=== PATIENT | female | born 2000 | race Caucasian/White ===

== ENCOUNTER 2022-08-03 17:31 | Emergency (ER) | payer OTHER, SELFPAY ==
[2022-08-03 17:42] VITALS: BP 134/73; PULSE 88; RESP 16; TEMP 37; O2SAT 99
--- NOTE | 2022-08-03 17:54 | ED.URI ---
HPI - URI/Sore Throat General Chief Complaint: Upper Respiratory Infection Stated Complaint: flu like sx Time Seen by Provider: 08/03/22 17:57 Source: patient and RN notes reviewed Mode of arrival: ambulatory Limitations: no limitations History of Present Illness HPI Narrative: 22-year-old female presents concern for a 3 day history of cough, sore throat, ear pain, nasal congestion and rhinorrhea. Reports body aches. She denies fever, sweats, chills. Reports taking DayQuil and NyQuil. 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 Denies chills, sweats, or fever. EYES: Denies visual changes, redness, or discharge. ENT: Reports rhinorrhea, congestion, left otalgia. Denies sore throat. CARDIOVASCULAR: Denies chest pain, palpitations, or edema. RESPIRATORY: Reports cough. Denies dyspnea. GASTROINTESTINAL: Denies abdominal pain, nausea, vomiting, diarrhea SKIN: Denies rash or itching. MUSCULOSKELETAL: Reports myalgia. NEUROLOGIC: Denies headache. All systems reviewed & are unremarkable except as noted in HPI and below PMFSH Comments At time of signature, agree with nursing past medical, surgical, social and family history. There is no relevant family history pertinent to the presenting complaint Exam Narrative: GENERAL: Well-appearing, well-nourished, and in no acute distress. HEAD: Normocephalic EYES: PERRLA, conjunctivae clear ENT: Nares clear, turbinates edematous and erythematous, clear discharge. Mucous membranes moist. TM pearly flannery with dull light reflex bilaterally, otitis effusion on the left; no tragal tenderness. Oropharynx not erythematous without lesions. Tonsils not enlarged and without exudate, no drooling, no hoarseness, no trismus, uvula midline. NECK: Supple. No lymphadenopathy CHEST: Clear to auscultation, breath sounds equal. No wheezing, rhonchi, rales, or stridor. No respiratory distress, speaks in full sentences. HEART: Regular rate and rhythm. No murmur heard. SKIN: Warm, dry, no rash. NEURO: Alert and oriented x3. PSYCH: Normal mood and affect Course Course Emergency Course: Patient is aware of diagnosis, understands and agrees to treatment plan. Anticipatory guidance given. Patient agrees to follow-up as directed and is aware of reasons to seek care at the emergency department. Portions of this record may have been created with voice recognition software Level of Care: Express Care Visit Vital Signs Vital signs: Vital Signs Temperature 98.6 F 08/03/22 17:42 Pulse Rate 88 08/03/22 17:42 Respiratory Rate 16 08/03/22 17:42 Blood Pressure 134/73 08/03/22 17:42 Pulse Oximetry 99 08/03/22 17:42 Oxygen Delivery Room Air 08/03/22 17:42 Temperature 98.6 F 08/03/22 17:42 Pulse Rate 88 08/03/22 17:42 Respiratory Rate 16 08/03/22 17:42 Blood Pressure 134/73 08/03/22 17:42 Pulse Oximetry 99 08/03/22 17:42 Oxygen Delivery Room Air 08/03/22 17:42 Reviewed. MDM - URI/Sore Throat MDM Narrative Medical decision making narrative: Differential diagnosis considered: [place] virus, strep pharyngitis, allergic rhinitis, upper respiratory tract infection, sinusitis, rhinosinusitis, nasopharyngitis. viral pharyngitis, otitis media, otitis externa, pneumonia, bronchitis, viral cough syndrome, viral syndrome, and influenza. Exam findings show no acute concerns or changes; patient is non-toxic appearing and is in no distress. Patient is appropriate for outpatient treatment and follow-up. Lab Data Attestation: I reviewed the pat
== END 2022-08-03 18:07 | disposition home or self-care (01) ==
PROVIDERS: Emergency Provider Nurse Practitioner; PCP Registered Nurse
DX: H92.10 Otorrhea, unspecified ear (principal)
CPT/HCPCS: 87804; 99203; G0463

== ENCOUNTER → 2022-12-09 07:49 | Outpatient (CLI) | payer OTHER, SELFPAY ==
--- NOTE | ~2022-12-09 | US_ITS ---
EXAMINATION: US soft tissue abdomen DATE: 12/09/2022 08:17 INDICATION: Periumbilical mass. TECHNIQUE: Multiple grayscale and Doppler ultrasound images of the abdomen were obtained. COMPARISON: None FINDINGS: There is no abnormal mass or hernia in the patient's area of concern. IMPRESSION: 1. No abnormal mass or hernia in the patient's area of concern. Reviewed, dictated and finalized at location A.
== END ==
PROVIDERS: PCP Registered Nurse; Visit Provider Registered Nurse
DX: R19.05 Periumbilic swelling, mass or lump (principal)
CPT/HCPCS: 76705